=== PATIENT | male | born 1985 | race American Indian/Alaskan Native ===

== ENCOUNTER 2019-09-23 04:59 | Emergency (ER) | payer SELFPAY ==
--- NOTE | 2019-09-23 05:51 | EDM.PDOC ---
ED HPI GENERAL MEDICAL PROBLEM <Javier Hare - Last Filed: 09/23/19 10:38> - General Source of Information: Reports: Police History Limitations: Reports: Altered Mental Status <Hadley Flores - Last Filed: 09/24/19 03:52> - General Chief Complaint: Drug or Alcohol Abuse Stated Complaint: MEDICAL CLEARANCE Time Seen by Provider: 09/23/19 05:16 - History of Present Illness INITIAL COMMENTS - FREE TEXT/NARRATIVE: According to the [place] police dispatcher who brought the patient to the ED, the patient was found in a secured parking lot by workers at [employer], huddled between 2 vehicles. It is unclear how the patient got into the parking lot - may have climbed over a fence. The workers called the police. The police found the patient to be incoherent. He admitted to them that he had been drinking. He told them that his mother had recently . He thought he was in [place], and they believe he lives in [place]. The patient had no idea how he came to [place]. Here in the ED, the patient is found to be modestly hypertensive, but is otherwise hemodynamically stable, saturating 100% on room air. He is unable to provide any meaningful history, stating that he is here to get his blood checked. He is aware that he is in a hospital, but cannot say which one. He did not answer when I asked if he knew which town he was in, or what the date is. No obvious injury was found on physical exam, however, the patient had great difficulty following commands for my neuro exam, therefore I have ordered a CT of the head without contrast, in addition to an ECG, blood work, and a urine drug screen. The patient has not been to this ED previously, therefore we have no old records to review regarding past medical, surgical, or social history. (Hadley Flores) - Related Data Allergies Allergy/AdvReac Type Severity Reaction Status Date / Time No Known Allergies Allergy Verified 09/23/19 05:08 Home Meds: Home Meds . [No Known Home Meds] 09/23/19 [History] ED ROS GENERAL - Review of Systems Review Of Systems: Unable To Obtain Reason Not Obtained: Altered mental status <Hadley Flores - Last Filed: 09/24/19 03:52> - Physical Exam Exam: See Below Exam Limited By: Altered Mental Status General Appearance: WD/WN, No Apparent Distress, Other (Smells of alcohol) Eye Exam: Bilateral Eye: PERRL, Other (Patient was unable to track my finger - minimal EOM activity) Ears: Normal External Exam, Normal Canal, Hearing Grossly Normal, Normal TMs Nose: Normal Inspection, Normal Mucosa, No Blood Throat/Mouth: Normal Inspection, Normal Lips, Normal Teeth, Normal Gums, Normal Oropharynx, Normal Voice, No Airway Compromise Head Exam: Atraumatic, Normocephalic Neck: Normal Inspection, Supple, Non-Tender, Full Range of Motion. No: Lymphadenopathy (L), Lymphadenopathy (R) Respiratory/Chest: No Respiratory Distress, Lungs Clear, Normal Breath Sounds, No Accessory Muscle Use Cardiovascular: Normal Peripheral Pulses, Regular Rate, Rhythm, No Edema, No Gallop, No JVD, No Murmur, No Rub GI/Abdominal: Normal Bowel Sounds, Soft, Non-Tender, No Organomegaly, No Distention, No Abnormal Bruit, No Mass (Male) Exam: Deferred Rectal (Males) Exam: Deferred Neuro Exam (Abbreviated): Confused, Disoriented, Slow to Respond, Other (Unable to cooperate with the neurologic exam due to AMS) Back Exam: Normal Inspection, Full Range of Motion, NT Extremities: Normal Inspection, Normal Range of Motion, No Pedal Edema, Normal Capillary Refill Psychiatric: Normal Mood Skin Exam: Warm, Dry, Intact, Normal Color, No Rash <Hadley Flores A - Last Filed: 09/24/19 03:52> EKG INTERPRETATION EKG Date: 09/23/19 Time: 05:23 Rhythm: NSR Rate (Beats/Min): 86 [place]: Normal P-Wave: Present QRS: Normal ST-T: Normal QT: Normal Comparison: NA - No Prior EKG <Hadley Flores A - Last Filed: 09/24/19 03:52> Course <Javier Hare A - Last Filed: 09/23/19 10:38> <Hadley Flores A - Last Filed: 09/24/19 03:52> - Vital Signs Last Recorded V/S: Last Vital Signs Temp 36.4 C 09/23/19 05:02 Pulse 84 09/23/19 05:02 Resp 18 09/23/19 05:02 BP 165/114 H 09/23/19 05:02 Pulse Ox 100 09/23/19 05:02 - Orders/Labs/Meds Orders: Active Orders 24 hr Category Date Time Status EKG Documentation Completion [RC] STAT Care 09/23/19 05:16 Active Labs: Laboratory Tests 09/23/19 09/23/19 09/23/19 Range/Units 05:16 05:30 05:30 WBC 7.17 (4.23-9.07) K/mm3 RBC 5.30 (4.63-6.08) M/mm3 Hgb 16.3 (13.7-17.5) gm/dl Hct 47.6 (40.1-51.0) % MCV 89.8 (79.0-92.2) fl MCH 30.8 (25.7-32.2) pg MCHC 34.2 (32.2-35.5) g/dl RDW Std Deviation 43.8 (35.1-43.9) fL Plt Count 350 H (163-337) K/mm3 MPV 9.2 L (9.4-12.3) fl Neut % (Auto) 55.6 (34.0-67.9) % Lymph % (Auto) 34.4 (21.8-53.1) % [place] % (Auto) 7.5 (5.3-12.2) % Eos % (Auto) 1.5 (0.8-7.0) Baso % (Auto) 0.7 (0.1-1.2) % Neut # (Auto) 3.98 (1.78-5.38) K/mm3 Lymph # (Auto) 2.47 (1.32-3.57) K/mm3 [place] # (Auto) 0.54 (0.30-0.82) K/mm3 Eos # (Auto) 0.11 (0.04-0.54) K/mm3 Baso # (Auto) 0.05 (0.01-0.08) K/mm3 Sodium 146 H (136-145) mEq/L Potassium 3.6 (3.5-5.1) mEq/L Chloride 106 (98-107) mEq/L Carbon Dioxide 29 (21-32) mEq/L Anion Gap 14.6 (5-15) BUN 11 (7-18) mg/dL Creatinine 1.0 (0.7-1.3) mg/dL Est Cr Clr Drug Dosing 96.40 mL/min Estimated GFR (MDRD) > 60 (>60) mL/min BUN/Creatinine Ratio 11.0 L (14-18) Glucose 114 H (74-106) mg/dL Calcium 8.4 L (8.5-10.1) mg/dL Magnesium 2.3 (1.8-2.4) mg/dl Total Bilirubin 0.3 (0.2-1.0) mg/dL AST 30 (15-37) U/L ALT 57 (16-63) U/L Alkaline Phosphatase 133 H (46-116) U/L Total Protein 8.1 (6.4-8.2) g/dl Albumin 4.2 (3.4-5.0) g/dl Globulin 3.9 gm/dL Albumin/Globulin Ratio 1.1 (1-2) Salicylates (2.8-20) mg/dL Urine Opiates Screen Negative (LALUJF=917) Ur Buprenorphine Scrn Negative (CUTOFF=10) Ur Oxycodone Screen Negative (LSO7IT=823) Urine Methadone Screen Negative (PHK4BO=486) Ur Propoxyphene Screen Negative (BYRYID=277) Acetaminophen 0 L (10-30) ug/mL Ur Barbiturates Screen Negative (ZEZBXR=628) Ur Tricyclics Screen Negative (NYJDWD=497) Ur Phencyclidine Scrn Negative (CUTOFF=25) Ur Amphetamine Screen Negative (TVFJWG=684) U Methamphetamines Scrn Negative (NUSFMN=006) U Benzodiazepines Scrn Negative (RSMBIS=992) U Cocaine Metab Screen Negative (EECBPQ=449) U Marijuana (THC) Screen Negative (CUTOFF=50) Ethyl Alcohol 0.27 (0.00) gm% 09/23/19 Range/Units 05:30 WBC (4.23-9.07) K/mm3 RBC (4.63-6.08) M/mm3 Hgb (13.7-17.5) gm/dl Hct (40.1-51.0) % MCV (79.0-92.2) fl MCH (25.7-32.2) pg MCHC (32.2-35.5) g/dl RDW Std Deviation (35.1-43.9) fL Plt Count (163-337) K/mm3 MPV (9.4-12.3) fl Neut % (Auto) (34.0-67.9) % Lymph % (Auto) (21.8-53.1) % [place] % (Auto) (5.3-12.2) % Eos % (Auto) (0.8-7.0) Baso % (Auto) (0.1-1.2) % Neut # (Auto) (1.78-5.38) K/mm3 Lymph # (Auto) (1.32-3.57) K/mm3 [place] # (Auto) (0.30-0.82) K/mm3 Eos # (Auto) (0.04-0.54) K/mm3 Baso # (Auto) (0.01-0.08) K/mm3 Sodium (136-145) mEq/L Potassium (3.5-5.1) mEq/L Chloride (98-107) mEq/L Carbon Dioxide (21-32) mEq/L Anion Gap (5-15) BUN (7-18) mg/dL Creatinine (0.7-1.3) mg/dL Est Cr Clr Drug Dosing mL/min Estimated GFR (MDRD) (>60) mL/min BUN/Creatinine Ratio (14-18) Glucose (74-106) mg/dL Calcium (8.5-10.1) mg/dL Magnesium (1.8-2.4) mg/dl Total Bilirubin (0.2-1.0) mg/dL AST (15-37) U/L ALT (16-63) U/L Alkaline Phosphatase (46-116) U/L Total Protein (6.4-8.2) g/dl Albumin (3.4-5.0) g/dl Globulin gm/dL Albumin/Globulin Ratio (1-2) Salicylates 1.8 L (2.8-20) mg/dL Urine Opiates Screen (OHMYFN=284) Ur Buprenorphine Scrn (CUTOFF=10) Ur Oxycodone Screen (RXV3FO=726) Urine Methadone Screen (IVT7BI=910) Ur Propoxyphene Screen (VFHUWT=421) Acetaminophen (10-30) ug/mL Ur Barbiturates Screen (URJUKH=052) Ur Tricyclics Screen (WFTBAY=431) Ur Phencyclidine Scrn (CUTOFF=25) Ur Amphetamine Screen (MWHXJG=791) U Methamphetamines Scrn (QJCDHS=552) U Benzodiazepines Scrn (MSQWST=532) U Cocaine Metab Screen (QCRKQA=655) U Marijuana (THC) Screen (CUTOFF=50) Ethyl Alcohol (0.00) gm% Meds: Medications Discontinued Medications Generic Name Dose Route Start Last Admin Trade Name Onesimo PRN Reason Stop Dose Admin Ondansetron HCl 4 mg 09/23/19 10:22 09/23/19 16:40 Zofran Odt PO 09/23/19 10:23 Not Given ONETIME ONE - Re-Assessments/Exams Free Text/Narrative Re-Assessment/Exam: 09/23/19 10:38 His awake and feeling better. He says he feels a little nauseated. I have ordered some zofran 4mg ODT. I will also give him something to eat. He wants to leave and walk back to [place]. We are looking into getting him some help for transportation. (Javier Hare) 09/23/19 06:45 CT of the head without contrast is read by Dr. Martinez as: 1. Nothing acute is identified on noncontrast head CT exam. The patient's CBC is remarkable for platelets elevated at 350,000, and is otherwise unremarkable. His CMP is remarkable for a sodium slightly elevated at 146 with a blood glucose slightly elevated at 114. His alkaline phosphatase is mildly elevated at 133. The remainder of his CMP is unremarkable. His magnesium is within normal limits at 2.3. His acetaminophen level is 0. His salicylate level is within normal limits at 1.8. His EtOH level is elevated at 0.27. His urine drug screen is completely negative. While it is possible that the patient is intoxicated with a drug that is either not screened for, or was not picked up by the urine drug screen, at this point it appears that the patient is merely intoxicated with alcohol. Our plan will be to keep the patient here in the ED until he is sober enough to be discharged. 09/23/19 07:[address] Hare, and care of the patient turned over to him at this time, for change of shift. (Hadley Flores) Departure - Departure Time of Disposition: 10:45 Condition: Good - Discharge Information *PRESCRIPTION DRUG MONITORING PROGRAM REVIEWED*: Not Applicable *COPY OF PRESCRIPTION DRUG MONITORING REPORT IN PATIENT RHEA: Not Applicable <Javier Hare - Last Filed: 09/23/19 10:38> <Hadley Flores - Last Filed: 09/24/19 03:52> - Departure Disposition: Home, Self-Care 01 Clinical Impression: Alcohol intoxication Qualifiers: Complication of substance-induced condition: uncomplicated Qualified Code(s): F10.920 - Alcohol use, unspecified with intoxication, uncomplicated - Discharge Information Instructions: Alcohol Intoxication, [id number] Referrals: PCP,Not In Area [Primary Care Provider] - Additional Instructions: Stop drinking. If you need help stopping drinking, call [facility] at or call your local human service center for help. Please return if you are worse. Sepsis Event Note - Focused Exam Date Exam was Performed: 09/23/19 Time Exam was Performed: 10:38 <Javier Hare - Last Filed: 09/23/19 10:38> - Evaluation Sepsis Screening Result: No Definite Risk - Focused Exam Date Exam was Performed: 09/24/19 Time Exam was Performed: 03:51 <Hadley Flores - Last Filed: 09/24/19 03:52> - My Orders Last 24 Hours: My Active Orders 09/23/19 05:16 EKG Documentation Completion [RC] STAT - Assessment/Plan Last 24 Hours: My Active Orders 09/23/19 05:16 EKG Documentation Completion [RC] STAT
[2019-09-23 06:16] LABS: ACETAMINOPHEN 0 ug/mL (10-30)
--- NOTE | 2019-09-23 06:23 | CT ---
Head CT Technique: Multiple axial sections through the brain were obtained. Intravenous contrast was not utilized. Comparison: No prior intracranial imaging. Findings: Ventricles along with basal cisterns and sulci over convexities appear within normal limits for the patient's age. No abnormal parenchymal densities are seen. No evidence of intracranial hemorrhage. No midline shift or mass effect is seen. Bone window settings were reviewed which shows no acute calvarial abnormality.. Impression: 1. Nothing acute is identified on noncontrast head CT exam. Diagnostic code #1
[2019-09-23] MEDS ORDERED: Ondansetron 4 MG Tab.DIS PO ONE (10:22)
== END 2019-09-23 21:25 | disposition home or self-care (01) ==
LOC: JD.ED 04:59
DX: F10.120 Alcohol abuse with intoxication, uncomplicated (principal); Y90.8 Blood alcohol level of 240 mg/100 ml or more
CPT/HCPCS: 36415; 70450; 70450-26; 80053; 80306; 82962; 83735; 85025; 93005; 99284-25; G0480